=== PATIENT | female | born 1960 | race Caucasian/White ===

== ENCOUNTER 2021-04-12 15:26 | Emergency (ER) | payer MEDICARE, OTHER ==
[~2021-04-12] VITALS: Ht 170.2 cm; Wt 87.1 kg
[~2021-04-12 15:26] MED LIST: BUPR150T5 PO; HYDR1TAB PO; LORA2TAB95 PO
--- NOTE | 2021-04-12 16:05 | NUR ---
THE PATIENT BIBS FOR C/O GENERALIZED BODY PAIN 5/10, FEELING SHAKING, NAUSEA. THE PATIENT STATES THAT SHE STOPPED DRINKING AFTER BINGING ON ALCOHOL X 8 DAYS. THE PATIENT IS ALERT AND ORIENTED X4 BUT VERBALIZIES FEELING ANXIOUS. DENIES PAIN. IN ROOM AIR AND DENIES SOB. RESPIRATION REGULAR AND UNLABORED. WILL CONTINUE TO MONITOR THE PATIENT.
[2021-04-12 16:36] LABS: BASOPHILS % (AUTO) 0.4 % (0.0-2.0); EOSINOPHILS % (AUTO) 1.4 % (0.0-6.0); HEMATOCRIT 39 % (33-45); LYMPHOCYTES # (AUTO) 1.4 K/uL (0.8-4.8); MEAN CORPUSCULAR HGB CONC 33 g/dl (31.0-36.0); MEAN CORPUSCULAR VOLUME 100 fL (82-100); MONOCYTES # (AUTO) 0.5 K/uL (0.1-1.30); MONOCYTES % (AUTO) 8.6 % (2.0-12.0); NEUTROPHILS # (AUTO) 4.3 K/uL (1.8-8.9); NEUTROPHILS % (AUTO) 67.6 % (43.0-81.0); PLATELET COUNT (AUTO) 180 K/uL (150-450); RED BLOOD CELL COUNT(AUTO) 3.87 MIL/uL (4.0-5.2); WHITE BLOOD COUNT (AUTO) 6.3 K/uL (4.3-11.0)
[2021-04-12 17:00] LABS: ALANINE AMINOTRANSFERASE 77 U/L (12-78); ALBUMIN 3.7 g/dL (3.4-5.0); ALCOHOL, BLOOD < 3 mg/dL (0-0); ALKALINE PHOSPHATASE 131 U/L (46-116); ASPARTATE AMINOTRANSFERASE 59 U/L (15-37); BILIRUBIN,DIRECT 0.1 mg/dL (0.0-0.2); BILIRUBIN,TOTAL 0.4 mg/dL (0.2-1.0); CALCIUM, SERUM 8.9 mg/dL (8.5-10.1); CARBON DIOXIDE 26 mmol/L (21-32); CHLORIDE 102 mmol/L (98-107); CREATININE 1.2 mg/dL (0.6-1.3); GLUCOSE 109 mg/dL (74-106); POTASSIUM 3.4 mmol/L (3.5-5.1); SODIUM SERUM 137 mmol/L (136-145); UREA NITROGEN, BLOOD 11 mg/dL (7-18)
[2021-04-12 17:01] LABS: ACETAMINOPHEN < 0 ug/ml (10-30)
[2021-04-12] MEDS ORDERED: POTASSIUM CHLORIDE 20 MEQ TAB.PRT.SR PO ONE ×4 (17:30→18:30)
--- NOTE | 2021-04-12 17:56 | NUR ---
Dada tidwell in [facility] - 04/12/21 at 1855 by MAXIMILIANO ROOM [id number]
[2021-04-12] MEDS ORDERED: LORAZEPAM INJ 2 MG/ML VIAL ONE ×2 (18:28→20:39)
[2021-04-12] MEDS ORDERED: IV NS 0.9% 1,000 ML IV ONE (18:30)
[2021-04-12] MEDS ORDERED: LORAZEPAM INJ 2 MG/ML VIAL IV ONE ×2 (18:30→21:00)
--- NOTE | 2021-04-12 18:38 | NUR ---
COVID SWAB DONE AND SENT TO THE LAB
--- NOTE | 2021-04-12 20:13 | NUR ---
AMBULATED TO THE RESTROOM
[2021-04-12] MEDS ORDERED: MAG HYDROX/AL HYDROX/SIMETH 30 ML UDC PO PRN (23:00)
[2021-04-12] MEDS ORDERED: Z GUARD REMEDY 2 OZ OINT TP PRN (23:00)
[2021-04-12] MEDS ORDERED: ZOLPIDEM TARTRATE 5 MG TABLET PO PRN (23:00)
[2021-04-12] MEDS ORDERED: MAGNESIUM HYDROXIDE 30 ML UDC PO PRN (23:00)
[2021-04-12] MEDS ORDERED: ACETAMINOPHEN 325 MG TABLET PO PRN (23:00)
[2021-04-12] MEDS ORDERED: ONDANSETRON HCL/PF 4 MG/2 ML VIAL IVP PRN (23:00)
[2021-04-12] MEDS ORDERED: LORAZEPAM INJ 2 MG/ML VIAL IV PRN (23:00)
--- NOTE | 2021-04-12 23:18 | NUR ---
Patient does not wish to proceed with medical care. Patient given information related to possible complications, up to and including , which could occur as a result of leaving the hospital at this time. Patient verbalizes understanding of risks involved due to leaving against medical advice. Patient has signed AMA form. IV line ws removed prior to leaving the hospital.
[2021-04-12 23:19] VITALS: BP 133/77
[2021-04-13] MEDS ORDERED: PANTOPRAZOLE 40 MG TABLET.DR PO SCH (07:30)
== END 2021-04-12 23:20 | disposition left against medical advice (07) ==
LOC: ER 15:40
DX: F10.139 Alcohol abuse with withdrawal, unspecified (principal); Y90.0 Blood alcohol level of less than 20 mg/100 ml; E87.6 Hypokalemia; G47.00 Insomnia, unspecified; R74.01 Elevation of levels of liver transaminase levels; F41.9 Anxiety disorder, unspecified; F32.9 Major depressive disorder, single episode, unspecified; Z20.822 Contact with and (suspected) exposure to COVID-19; Z53.29 Procedure and treatment not carried out because of patient's decision for other reasons
CPT/HCPCS: 36415; 80048; 80076; 80143; 80320; 85025; 87081; 87426; 96361; 96374; 96376; 99284; J2060 ×2; J7030; C9803; G0480

== ENCOUNTER 2021-04-13 02:43 | Emergency (ER) | payer MEDICARE, OTHER ==
[~2021-04-13] VITALS: Ht 170.2 cm; Wt 83.9 kg
[2021-04-13 04:37] VITALS: BP 139/76
== END 2021-04-13 04:42 | disposition home or self-care (01) ==
LOC: ER 02:45
DX: F10.129 Alcohol abuse with intoxication, unspecified (principal); F32.9 Major depressive disorder, single episode, unspecified; F17.200 Nicotine dependence, unspecified, uncomplicated; Z79.899 Other long term (current) drug therapy; Y90.9 Presence of alcohol in blood, level not specified

== ENCOUNTER 2022-03-13 16:07 | Emergency (ER) | payer MEDICARE, OTHER ==
[~2022-03-13] VITALS: Ht 167.6 cm; Wt 54.4 kg
--- NOTE | 2022-03-13 16:10 | NUR ---
BIBS C/O UNABLE TO WALK AFTER DRINKING TOO MUCH LAST NIGHT
--- NOTE | 2022-03-13 18:20 | NUR ---
PT IS ALERT AND AWAKE NOW AFTER SLEEPING FOR SEVERAL HOURS.
--- NOTE | 2022-03-14 04:40 | NUR ---
PATIENT IS AWAKE, ALERT AND OX4. BREATHING EVENLY. NO SOB. VSS. REPORTED FEELING WELL. DENIE ANY PAIN OR DISCOMFORT. DENIED SI/HI. PO INTAKE TOLERATED WELL. AMBULATORY WITH STEADY GAITS. PT REPORTED SHE'S READY TO LEAVE AND IS GOING TO CALL LIFT TO PICK HER UP.
--- NOTE | 2022-03-14 05:00 | NUR ---
Patient discharged to home in stable condition. Written and verbal after care instructions given. Patient verbalizes understanding of instruction.
[2022-03-14 05:21] VITALS: BP 137/79
== END 2022-03-14 05:00 | disposition home or self-care (01) ==
LOC: ER 16:11
DX: F10.129 Alcohol abuse with intoxication, unspecified (principal); F32.A Depression, unspecified; F17.200 Nicotine dependence, unspecified, uncomplicated; Z79.899 Other long term (current) drug therapy; Y90.9 Presence of alcohol in blood, level not specified